=== PATIENT | male | born 1955 | race African-American/Black ===

== ENCOUNTER 2016-06-08 17:39 | Emergency (ER) | payer OTHER ==
[~2016-06-08] VITALS: Ht 175.3 cm; Wt 83.9 kg
[~2016-06-08 17:39] MED LIST: ALDACTONE25 MG PO; AMBIEN5 MG PO; ASPIR-LOW81 MG PO; FUROSEMIDE40 MG PO; METOPROLOL TART25 MG PO; NKM; POTASSIUM CHLO10 MEQ PO; ZESTRIL20 MG PO
[2016-06-08] MEDS ORDERED: CEPHALEXIN500 MG ORAL (19:08)
[2016-06-08] MEDS ORDERED: ACETAMINOPHEN-1 EAC2 ORAL (19:08)
[2016-06-08] MEDS ORDERED: CLINDAMYCIN HC300 MG ORAL (19:08)
[2016-06-08 19:32] VITALS: BP 118/74
--- NOTE | 2016-06-08 21:06 | Emergency Room Report ---
History of Present Illness General Chief Complaint: Pain Source: Patient Present Illness HPI 61-year-old male complains of bilateral leg pain that's been chronic. States he has been worse for the past one week. It is worse with walking a palpation and tender to touch. She said there is no relieving factors. Denies taking any medications. Denies being diabetic. States he has full range of motion of his feet and legs denies any CP, SOB, numbness, fevers, loss of ROM, LE swelling , paralysis, paresthesia, loss of pallor or trauma. Allergies: Coded Allergies: No Known Allergies (Unverified , 06/16/12) Patient History Past Medical History: see triage record Past Surgical History: unable to obtain Pertinent Family History: none Reviewed Nursing Documentation: PMH: Agreed, PSxH: Agreed Nursing Documentation-PM Past Medical History: No Stated History Hx Hypertension: Yes Hx Diabetes: Yes Hx Cancer: No Hx Gastrointestinal Problems: No Hx Neurological Problems: No - swollen legs with blister 5 years Review of Systems All Other Systems: negative except mentioned in HPI Physical Exam Vital Signs Date Time Temp Pulse Resp B/P Pulse Ox O2 Delivery O2 Flow Rate FiO2 06/08/16 18:00 98.2 79 15 118/74 98 Room Air Sp02 EP Interpretation: reviewed, normal General Appearance: no apparent distress, alert, GCS 15, non-toxic Head: normocephalic, atraumatic Eyes: bilateral eye PERRL, bilateral eye normal inspection ENT: hearing grossly normal, normal pharynx, no angioedema, normal voice Neck: full range of motion, supple/symm/no masses Respiratory: chest non-tender, lungs clear, normal breath sounds, speaking full sentences Cardiovascular #1: regular rate, rhythm, no edema Cardiovascular #2: 2+ dorsalis pedis (R), 2+ dorsalis pedis (L) Musculoskeletal: back normal, gait/station normal, normal range of motion, calf tenderness, inflammation, swelling, other - +CMS, tender Neurologic: alert, oriented x3, responsive, motor strength/tone normal, sensory intact, speech normal Psychiatric: judgement/insight normal, memory normal, mood/affect normal, no suicidal/homicidal ideation Skin: normal color, no rash, warm/dry, well hydrated Lymphatic: no adenopathy Medical Decision Making PA Attestation Dr. Power is my supervising physician with whom patient management has been discussed with. Diagnostic Impression: Primary Impression: Cellulitis of both lower extremities ER Course Pt. presents to the ED c/o chronic bilateral LE pain Ddx considered but are not limited to cellulitis, DVT, trauma Vital signs: are WNL, pt. is afebrile H&PE are most consistent with primary cellulitis ORDERS: none required at this time, the diagnosis is clinical ED INTERVENTIONS: None required at this time. DISCHARGE: At this time pt. is stable for d/c to home. Will provide printed patient care instructions, and any necessary prescriptions. Care plan and follow up instructions have been discussed with the patient prior to discharge. Last Vital Signs Date Time Temp Pulse Resp B/P Pulse Ox O2 Delivery O2 Flow Rate FiO2 06/08/16 18:00 98.2 79 15 118/74 98 Room Air Status: unchanged Disposition: HOME, SELF-CARE Condition: Stable Scripts Acetaminophen With Codeine (T#4) (TYLENOL #4 TAB*) Y Tab 1 TAB ORAL Q8H Y for For Pain for 5 Days, #15 TAB 0 Refills Prov: GAMAL MARTINEZ P.A. 06/08/16 Cephalexin* (KEFLEX*) 500 Mg Capsule 500 MG ORAL EVERY 12 HOURS for 10 Days, #20 CAP 0 Refills Prov: GAMAL MARTINEZ P.A. 06/08/16 Clindamycin Hcl (CLINDAMYCIN HCL) 300 Mg Capsule 300 MG ORAL TID for 10 Days, #30 CAP Prov: CASSIE MARTINEZM P.A. 06/08/16 Referrals: NOT CHOSEN IPA/MD,REFERRING (PCP) PCP Patient Instructions: Cellulitis GAMAL MARTINEZ P.A. Jun 08, 2016 21:06
== END 2016-06-08 19:32 | disposition home or self-care (01) ==
LOC: EMR 18:16
DX: L03.116 Cellulitis of left lower limb (principal); L03.115 Cellulitis of right lower limb; E11.9 Type 2 diabetes mellitus without complications; I10 Essential (primary) hypertension
CPT/HCPCS: 99282

== ENCOUNTER 2016-10-06 17:42 | Emergency (ER) | payer MEDICARE, OTHER ==
[~2016-10-06] VITALS: Ht 170.2 cm; Wt 77.1 kg
[~2016-10-06 17:42] MED LIST changes: +ACETAMINOPHEN-1 EAC2 ORAL; +CEPHALEXIN500 MG ORAL; +CLINDAMYCIN HC300 MG ORAL
[2016-10-06 17:55] VITALS: BP 123/80
[2016-10-06] MEDS ORDERED: Proparacaine 0.5% Opth Soln 15ml RIGHT EYE ONE (18:15)
[2016-10-06 19:18] VITALS: BP 123/80
--- NOTE | 2016-10-06 20:14 | Emergency Room Report ---
History of Present Illness General Chief Complaint: General Complaint Source: Patient Present Illness HPI The patient is a 61-year-old male presenting for blurred vision of the right eye which occurred 2 months prior. The patient states that he was being treated at [facility] at that time for an unrelated complaint. He believes they may have applied eye drops to the R eye for unknown reason. 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 He states he does not wear any corrective lenses. He denies any pain to the eye. He denies any other symptoms including N, V, F, chills, dizziness, JAIMES, blindness Allergies: Coded Allergies: No Known Allergies (Unverified , 06/16/12) Patient History Past Medical History: see triage record Pertinent Family History: none Reviewed Nursing Documentation: PMH: Agreed, PSxH: Agreed Nursing Documentation-PMH Past Medical History: No History, Except For Hx Cardiac Problems: Yes - UMBILICA HERNIA, chf Hx Hypertension: Yes Hx Diabetes: Yes Hx Cancer: No Hx Gastrointestinal Problems: No Hx Neurological Problems: No - swollen legs with blister 5 years Review of Systems All Other Systems: negative except mentioned in HPI Physical Exam Vital Signs Date Time Temp Pulse Resp B/P Pulse Ox O2 Delivery O2 Flow Rate FiO2 10/06/16 17:55 98.1 93 18 123/80 99 Room Air Sp02 EP Interpretation: reviewed, normal General Appearance: no apparent distress, alert, GCS 15, non-toxic Head: normocephalic, atraumatic Eyes: bilateral eye EOMI, bilateral eye PERRL, bilateral eye normal inspection ENT: hearing grossly normal, normal pharynx, no angioedema, normal voice Neck: full range of motion, supple/symm/no masses Musculoskeletal: back normal, gait/station normal, normal range of motion, non- tender Neurologic: alert, oriented x3, responsive, motor strength/tone normal, sensory intact, normal gait, speech normal Psychiatric: judgement/insight normal, memory normal, mood/affect normal, no suicidal/homicidal ideation Skin: normal color, no rash, warm/dry, well hydrated Lymphatic: no adenopathy Medical Decision Making PA Attestation Dr. Jackson is my supervising physician. Patient management was discussed with my supervising physician Diagnostic Impression: Primary Impression: Blurred vision, right eye ER Course The patient is a 61-year-old male presenting for blurred vision of the right eye Differential diagnoses considered but not limited to glaucoma, cataracts, bacterial conjunctivitis, viral conjunctivitis, blepharitis, hordeolum PE: vitals WNL. NAD HEENT: PERRL. EOMI. No edema. No injection. No hazing of cornea. Visual acuity: OS 20/40 OD: unable. Pt states he cannot read any letters. Proparacaine was placed into the right eye and tonometer is used for IOP. Average readings are 13 and 14. The patient is discharged and will followup with bag making machine operator as soon as possible. He understands. ER precautions are given Last Vital Signs Date Time Temp Pulse Resp B/P Pulse Ox O2 Delivery O2 Flow Rate FiO2 10/06/16 19:18 98.1 18 123/80 99 Room Air 10/06/16 17:55 93 Status: improved Disposition: HOME, SELF-CARE Condition: Improved Referrals: NOT CHOSEN IPA/MD,REFERRING (PCP) Patient Instructions: Blurred Vision Additional Instructions: I discussed my findings with the patient. All questions and concerns have been answered. Treatment and medication compliance have been addressed. I advised the patient that they need to follow up with PMD in 3-5 days. Return to ED if symptoms worsen, new symptoms arise, or if needed for any reason. Patient verbalized understanding of discharge instructions. The patient is advised that he needs to followup with ophthalmology as soon as possible LOAN ARCHIBALD October 06, 2016 20:14
== END 2016-10-06 19:20 | disposition home or self-care (01) ==
LOC: EMR 18:32
DX: H53.8 Other visual disturbances (principal); I50.9 Heart failure, unspecified; I10 Essential (primary) hypertension; E11.9 Type 2 diabetes mellitus without complications
CPT/HCPCS: 99282